=== PATIENT | male | born 1945 | race Caucasian/White ===

== ENCOUNTER 2018-07-11 10:57 | Outpatient (CLI) | payer OTHER, SELFPAY ==
[2018-07-11 13:09] LABS: Abs Immature Grans 0.03 k/cumm (0.0-0.09); Absolute Basophil Count 0.04 k/cumm (0.0-0.2); Absolute Eosinophil Count 0.42 k/cumm (0.0-0.7); Absolute Lymphocyte Count 1.94 k/cumm (1.2-3.4); Absolute Monocyte Count 0.91 k/cumm (0.11-0.7); Absolute Neutrophil Count 5.96 k/cumm (1.2-6.7); Basophils % 0.4; Eosinophils % 4.5; HCT 48.7 % (40.0-50.0); HGB 16.3 g/dL (13.5-17.5); Immature Grans % 0.3; Lymphocytes % 20.9; Mean Corp. HGB Concentration 33.5 g/dL (32.0-36.0); Mean Corpuscular Hemoglobin 30.5 pg (27.0-33.0); Mean Corpuscular Volume 91.2 fL (80-95); Mean Platelet Volume 10.5 fL (8.0-11.0); Monocytes % 9.8; Neutrophils % 64.1; Platelet Count 252 x1000/uL (130-400); RBC 5.34 m/cumm (4.50-6.00); RBC Distribution Width 14.3 % (11.8-14.1)
[2018-07-11 13:34] LABS: ALT 22 U/L (12-78); AST 24 U/L (15-37); Albumin 3.5 g/dL (3.4-5.0); Alkaline Phosphatase 57 U/L (46-116); Anion Gap 10.7 mmol/L (3-11); BUN 17 mg/dL (7-18); Bilirubin, Total 0.9 mg/dL (0.2-1.0); CO2 27.3 mmol/L (21.0-32.0); CREATININE 1.33 mg/dL (0.70-1.30); Calcium 9.2 mg/dL (8.5-10.1); Chloride 103 mmol/L (98-107); Estimated GFR 52.85 (mL/min/1.73m2); Glucose 96 mg/dL (70-100); Potassium 3.6 mmol/L (3.5-5.1); Sodium 141 mmol/L (136-145); TSH (W/Ref FT4) 1.92 uIU/mL (0.358-3.74); Total Protein 7.1 g/dL (6.4-8.2)
[2018-07-12 10:20] LABS: PSA, Screening 6.4 ng/ml (0-6.5)
[2018-07-12 15:41] LABS: Free PSA/PSA Ratio 0.08 ratio
== END 2018-07-11 11:17 ==
PROVIDERS: PCP Internal Medicine; Visit Provider Internal Medicine
DX: R97.20 Elevated prostate specific antigen [PSA] (principal); D64.9 Anemia, unspecified; I10 Essential (primary) hypertension
CPT/HCPCS: 36415; 80053; 84153; 84154; 84443; 85025

== ENCOUNTER 2019-01-09 11:17 | Outpatient (REF) | payer OTHER, SELFPAY ==
[2019-01-09 21:04] LABS: HCT 51.9 % (40.0-50.0); HGB 17.5 g/dL (13.5-17.5); Mean Corp. HGB Concentration 33.7 g/dL (32.0-36.0); Mean Corpuscular Hemoglobin 30.1 pg (27.0-33.0); Mean Corpuscular Volume 89.3 fL (80-95); Mean Platelet Volume 10.7 fL (8.0-11.0); Platelet Count 222 x1000/uL (130-400); RBC 5.81 m/cumm (4.50-6.00); RBC Distribution Width 14.8 % (11.8-14.1); White Blood Cell Count 8.54 k/cumm (4.4-10.8)
[2019-01-09 21:50] LABS: ALT 28 U/L (12-78); AST 25 U/L (15-37); Albumin 3.5 g/dL (3.4-5.0); Alkaline Phosphatase 59 U/L (46-116); BUN 19 mg/dL (7-18); Bilirubin, Total 0.7 mg/dL (0.2-1.0); Calcium 9.6 mg/dL (8.5-10.1); Chloride 102 mmol/L (98-107); Cholesterol 167 mg/dL (50-200); Estimated GFR 49.82 (mL/min/1.73m2); Glucose 101 mg/dL (70-100); HDL Cholesterol 32 mg/dL (40-60); LDL CHOLESTEROL 118 mg/dL (<100); Potassium 3.8 mmol/L (3.5-5.1); Sodium 141 mmol/L (136-145); TSH (W/Ref FT4) 1.48 uIU/mL (0.358-3.74); Total Protein 7.5 g/dL (6.4-8.2); Triglyceride 84 mg/dL (30-150)
[2019-01-09 22:48] LABS: Hemoglobin A1C 5.6 % (4.5-6.2)
== END 2019-01-09 11:37 ==
LOC: NCHCN 11:17
PROVIDERS: Visit Provider Family Medicine
DX: Z00.00 Encounter for general adult medical examination without abnormal findings (principal); Z13.220 Encounter for screening for lipoid disorders; E66.1 Drug-induced obesity
CPT/HCPCS: 80053; 80061; 83721; 85027; 83036; 84443

== ENCOUNTER 2020-08-19 22:00 | Outpatient (REF) | payer OTHER, SELFPAY ==
[2020-08-19 22:57] LABS: ALT 19 U/L (16-63); AST 20 U/L (15-37); Albumin 3.4 g/dL (3.4-5.0); Alkaline Phosphatase 62 U/L (46-116); Anion Gap 9.1 mmol/L (3-11); BUN 14 mg/dL (7-18); Bilirubin, Total 0.7 mg/dL (0.2-1.0); CO2 28.9 mmol/L (21.0-32.0); Calcium 8.9 mg/dL (8.5-10.1); Calculated LDL 107 mg/dL (<100); Chloride 103 mmol/L (98-107); Cholesterol 162 mg/dL (<200); Estimated GFR 42.46 (mL/min/1.73m2); Glucose 106 mg/dL (74-106); HDL Cholesterol 35 mg/dL (40-60); Potassium 3.6 mmol/L (3.5-5.1); Sodium 141 mmol/L (136-145); Total Protein 7.1 g/dL (6.4-8.2); Triglyceride 100 mg/dL (<150)
[2020-08-21 16:05] LABS: PSA, Screening 8.5 ng/mL (0-6.5)
== END 2020-08-19 22:20 ==
LOC: NCHCN 22:00
PROVIDERS: PCP Family Medicine; Visit Provider Family Medicine
DX: E66.01 Morbid (severe) obesity due to excess calories (principal); I10 Essential (primary) hypertension
CPT/HCPCS: 80053; 80061; 84153

== ENCOUNTER 2021-02-10 08:35 | Outpatient (REF) | payer BC, SELFPAY ==
[2021-02-10 13:40] LABS: ALT 30 U/L (16-63); AST 25 U/L (15-37); Albumin 3.3 g/dL (3.4-5.0); Alkaline Phosphatase 65 U/L (46-116); Anion Gap 8.7 mmol/L (3-11); BUN 21 mg/dL (7-18); Bilirubin, Total 0.7 mg/dL (0.2-1.0); CO2 32.3 mmol/L (21.0-32.0); CREATININE 1.5 mg/dL (0.70-1.30); Calcium 8.8 mg/dL (8.5-10.1); Calculated LDL 96 mg/dL (<100); Chloride 104 mmol/L (98-107); Cholesterol 148 mg/dL (<200); Estimated GFR 45.62 (mL/min/1.73m2); Glucose 119 mg/dL (74-106); HDL Cholesterol 37 mg/dL (40-60); Potassium 3.6 mmol/L (3.5-5.1); Sodium 145 mmol/L (136-145); Total Protein 6.8 g/dL (6.4-8.2); Triglyceride 75 mg/dL (<150)
== END 2021-02-10 08:36 | disposition home or self-care (01) ==
LOC: NCHCN 08:35
PROVIDERS: PCP Family Medicine; Visit Provider Family Medicine
DX: I10 Essential (primary) hypertension (principal); E66.01 Morbid (severe) obesity due to excess calories; Z00.00 Encounter for general adult medical examination without abnormal findings
CPT/HCPCS: 80053; 80061

== ENCOUNTER 2021-02-19 09:22 | Outpatient (CLI) | payer MEDICARE, SELFPAY ==
--- NOTE | 2021-02-19 14:37 | DI.RAD_ITS ---
Exam(s) XR LUMBAR SPINE COMPLETE EXAM: XR LUMBAR SPINE COMPLETE CLINICAL HISTORY: CHRONIC LOW BACK PAIN M54.5. TECHNIQUE: 2D digital imaging was performed. COMPARISON: No exams were available for comparison FINDINGS: No evidence of compression fracture. There is 5 millimeters anterior listhesis of L5 upon S1 which a ppears to be related to pars defects as faintly seen on the lateral view. There is advanced disc spa ce narrowing at this level. Moderate-advanced disc space narrowing is seen all the other levels in t he lumbar spine with the exception of relative disc height sparing at T12-L1 and L1-2 levels. There are prominent left-sided osteophytes bridging osteophytes at L2-3 level. Smaller osteophytes right-s jon L3-4 level. Degenerative changes noted in the facet joints. There is probably an element of mul tilevel canal stenosis here. No osseous lesions. SI joints unremarkable. There is a right hip pros thesis. IMPRESSION: DATA REPOSITORY: RADIATION DOSE DELIVERED:
== END 2021-02-19 09:42 ==
PROVIDERS: PCP Family Medicine; Visit Provider Family Medicine
DX: M54.5 Low back pain (principal); M51.37 Other intervertebral disc degeneration, lumbosacral region; M47.817 Spondylosis without myelopathy or radiculopathy, lumbosacral region; Z96.641 Presence of right artificial hip joint
CPT/HCPCS: 72110

== ENCOUNTER 2021-03-14 01:59 | Outpatient (CLI) | payer MEDICARE, SELFPAY ==
--- NOTE | 2021-03-14 | DI.MRI_ITS ---
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 TECHNIQUE: Multiplanar multisequence MRI of the Lumbar spine was performed. COMPARISON: CR XR LUMBAR SPINE COMPLETE from 02/19/2021 CR XR LUMBAR SPINE COMPLETE from 02/19/2021 FINDINGS: Bones: The last intervertebral disc space is designated the L5/S1 level for the numbering purpose of this examination. The vertebral body heights are well maintained. There is L5 spondylolysis and gra de 1 spondylolisthesis of L5 on S1. Endplate degenerative signal changes are seen at multiple levels of the lumbar spine. Hemangioma or fatty rests are seen in the T12 vertebral body in the S1 segment. Cord: The conus tip ends at the L1 level. It is of normal size and signal intensity. T12-L1: No disc herniations or bulges are present. No central spinal canal or neural foraminal stenos is. L1-2: No disc herniations or bulges are present. No central spinal canal or neural foraminal stenosis . L2-3: There is a diffuse disc bulge. No significant central spinal canal stenosis is seen. No signi ficant neural foraminal stenosis is present. L3-4: There is a diffuse disc bulge. Facet arthropathy is present. There is very mild narrowing of the central spinal canal. Mild bilateral neural foraminal stenosis is present, left greater than rig ht. L4-5: There is disc desiccation and a diffuse disc bulge slightly eccentric to the left. There is fa cet arthropathy. No significant central spinal canal stenosis is seen. Moderately severe bilateral neural foraminal stenosis is present. L5-S1: There is a mild diffuse disc bulge. No significant central spinal canal stenosis. Facet arth ropathy is present. Moderately severe bilateral neural foraminal stenosis is present. Soft tissues: The visualized SI joints and sacrum are well maintained. The paraspinal soft tissues ar e unremarkable. There are left renal simple cysts. IMPRESSION: 1. 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 2. 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 Findings are most marked at the L4-5 and L5-S1 disc levels. DATA REPOSITORY:
== END 2021-03-14 02:19 ==
PROVIDERS: PCP Family Medicine; Visit Provider Family Medicine
DX: M43.17 Spondylolisthesis, lumbosacral region (principal); M43.06 Spondylolysis, lumbar region; M47.816 Spondylosis without myelopathy or radiculopathy, lumbar region; M48.061 Spinal stenosis, lumbar region without neurogenic claudication
CPT/HCPCS: 72148

== ENCOUNTER 2022-02-16 11:08 | Outpatient (REF) | payer MEDICARE, SELFPAY ==
[2022-02-16 14:46] LABS: HCT 47.1 % (40.0-50.0); HGB 15.3 g/dL (13.5-17.5); MCH 30.8 pg (27.0-33.0); MCHC 32.5 % (32.0-36.0); MCV 95 fL (80-95); MPV 9.9 fL (8.0-11.0); Platelet Count 224 10^3/uL (130-400); RBC 4.96 10^6/uL (4.36-5.78); RDW 14.8 % (11.8-14.1); RDW-SD 51.6 fL; WBC 9.52 10^3/uL (4.4-10.8)
[2022-02-16 16:15] LABS: Hemoglobin A1C 5.3 % (<5.7)
[2022-02-16 16:28] LABS: ALT 19 U/L (16-63); AST 20 U/L (15-37); Albumin 3.2 g/dL (3.4-5.0); Alkaline Phosphatase 62 U/L (46-116); Anion Gap 7.6 mmol/L (3-11); BUN 18 mg/dL (7-18); Bilirubin, Total 0.7 mg/dL (0.2-1.0); CO2 30.4 mmol/L (21.0-32.0); CREATININE 1.4 mg/dL (0.70-1.30); Chloride 106 mmol/L (98-107); Estimated GFR 49.27 (mL/min/1.73m2); Glucose 93 mg/dL (74-106); Potassium 3.6 mmol/L (3.5-5.1); Sodium 144 mmol/L (136-145); Total Protein 6.9 g/dL (6.4-8.2)
== END 2022-02-16 11:09 | disposition home or self-care (01) ==
LOC: NCHCN 11:08
PROVIDERS: PCP Family Medicine; Visit Provider Family Medicine
DX: I10 Essential (primary) hypertension (principal); E66.01 Morbid (severe) obesity due to excess calories; R79.89 Other specified abnormal findings of blood chemistry
CPT/HCPCS: 80053; 85027; 83036

== ENCOUNTER → 2022-06-15 12:48 | Outpatient (CLI) | payer MEDICARE, SELFPAY ==
--- NOTE | 2022-06-15 | DI.RAD_ITS ---
Exam(s) XR HIP LT COMPLETE AP PELVIS EXAM: XR HIP LT COMPLETE AP PELVIS INDICATION: LEFT HIP JOINT PAIN--M25.552. COMPARISON: CR RIGHT HIP COMPLETE from 03/06/2011 CR PELVIS AP from 12/14/2011 RF from 11/14/2012 TECHNIQUE: 2D digital imaging was performed. Three views. FINDINGS: There is a right hip prosthesis. Left hip joint space is well maintained. There is acetabular spur ring. There are enthesophytes at the greater trochanter. There are dense degenerative changes in th e lower lumbar spine. IMPRESSION: Mild degenerative changes of the left hip. Right hip prosthesis. DATA REPOSITORY: RADIATION DOSE DELIVERED:
== END ==
PROVIDERS: PCP Family Medicine; Visit Provider Family Medicine
DX: M16.12 Unilateral primary osteoarthritis, left hip (principal)
CPT/HCPCS: 73502

== ENCOUNTER 2022-08-19 15:00 | Outpatient (REF) | payer MEDICARE, SELFPAY ==
[2022-08-19 18:12] LABS: Anion Gap 6.8 mmol/L (3-11); BUN 17 mg/dL (7-18); CO2 26.2 mmol/L (21.0-32.0); CREATININE 1.3 mg/dL (0.70-1.30); Calcium 9.3 mg/dL (8.5-10.1); Chloride 106 mmol/L (98-107); Estimated GFR 56.93 (mL/min/1.73m2); Glucose 108 mg/dL (74-106); Potassium 4.1 mmol/L (3.5-5.1); Sodium 139 mmol/L (136-145)
== END 2022-08-19 15:01 | disposition home or self-care (01) ==
LOC: NCHCN 15:00
PROVIDERS: PCP Family Medicine; Visit Provider Family Medicine
DX: I10 Essential (primary) hypertension (principal); E66.01 Morbid (severe) obesity due to excess calories
CPT/HCPCS: 80048

== ENCOUNTER 2023-02-15 15:34 | Outpatient (REF) | payer MEDICARE, SELFPAY ==
[2023-02-15 16:45] LABS: Anion Gap 7.3 mmol/L (3-11); BUN 19 mg/dL (7-18); CO2 30.7 mmol/L (21.0-32.0); CREATININE 1.4 mg/dL (0.70-1.30); Chloride 104 mmol/L (98-107); Estimated GFR 51.77 (mL/min/1.73m2); Glucose 103 mg/dL (74-106); Potassium 4.7 mmol/L (3.5-5.1); Sodium 142 mmol/L (136-145); TSH (W/Ref FT4) 4.54 uIU/mL (0.36-3.74)
[2023-02-15 18:27] LABS: FREE T4 1.38 ng/dL (0.76-1.46)
[2023-02-16 11:32] LABS: Hemoglobin A1C 5.6 % (<5.7)
== END 2023-02-15 15:35 | disposition home or self-care (01) ==
LOC: NCHCN 15:34
PROVIDERS: PCP Family Medicine; Visit Provider Family Medicine
DX: I10 Essential (primary) hypertension (principal); R73.09 Other abnormal glucose; N19 Unspecified kidney failure; L21.9 Seborrheic dermatitis, unspecified; E66.01 Morbid (severe) obesity due to excess calories
CPT/HCPCS: 80048; 83036; 84439; 84443

== ENCOUNTER 2023-09-08 16:37 | Outpatient (REF) | payer MEDICARE, SELFPAY ==
[2023-09-08 21:55] LABS: Anion Gap 9.7 mmol/L (3-11); BUN 15 mg/dL (7-18); CO2 26.3 mmol/L (21.0-32.0); CREATININE 1.4 mg/dL (0.70-1.30); Calcium 8.9 mg/dL (8.5-10.1); Chloride 105 mmol/L (98-107); Estimated GFR 51.77 (mL/min/1.73m2); Glucose 89 mg/dL (74-106); Potassium 3.8 mmol/L (3.5-5.1); Sodium 141 mmol/L (136-145)
== END 2023-09-08 16:38 | disposition home or self-care (01) ==
LOC: NCHCN 16:37
PROVIDERS: PCP Family Medicine; Visit Provider Family Medicine
DX: I10 Essential (primary) hypertension (principal)
CPT/HCPCS: 80048

== ENCOUNTER → 2024-01-24 17:25 | Outpatient (CLI) | payer MEDICARE, SELFPAY ==
--- NOTE | 2024-01-24 18:13 | DI.RAD_ITS ---
Exam(s) XR FOOT RT COMPLETE EXAM: XR FOOT RT COMPLETE CLINICAL HISTORY: M79.671Pain in RT foot, for 3 wks with Erythema and swelling. TECHNIQUE: 2D digital imaging was performed. Three views. COMPARISON: No exams were available for comparison FINDINGS: BONES: No acute fracture is present. No bony destructive lesion is seen. Heel spur. JOINTS: No dislocation present. Midfoot degenerative changes. SOFT TISSUE: Vascular calcifications. Dorsal swelling. IMPRESSION: Degenerative changes. No acute bony abnormality. DATA REPOSITORY: RADIATION DOSE DELIVERED:
--- NOTE | 2024-01-25 00:11 | DI.VRAD_ITS ---
PROCEDURE INFORMATION: Exam: XR Right Foot Exam date and time: 01/24/2024 5:56 PM Age: 79 years old Clinical indication: Swelling, leg or foot; Right; Patient HX: Pain in RT foot, for 3 wks with erythema and swelling; Additional info: Patient unable to hold position, best images possible TECHNIQUE: Imaging protocol: Radiologic exam of the right foot. Views: 3 or more views. COMPARISON: No relevant prior studies available. FINDINGS: Bones/joints: No acute fracture or dislocation. Calcaneal spur noted. Degenerative changes in the midfoot Soft tissues: Vascular calcifications IMPRESSION: No acute findings. Dictated and Authenticated by: Steven Arenas MD. Ordering:TRACIE Wiley MD
== END ==
PROVIDERS: PCP Family Medicine; Visit Provider Physician Assistant
DX: M79.671 Pain in right foot (principal)
CPT/HCPCS: 73630

== ENCOUNTER 2024-01-24 18:17 | Outpatient (REF) | payer MEDICARE, SELFPAY ==
[2024-01-24 21:02] LABS: Abs Immature Grans 0.04 10^3/uL (0.0-0.06); Absolute Basophil Count 0.07 10^3/uL (0.0-0.2); Absolute Eosinophil Count 0.34 10^3/uL (0.0-0.7); Absolute Lymphocyte Count 1.68 10^3/uL (1.2-3.4); Basophils % 0.6; Eosinophils % 3.1; HCT 50.8 % (40.0-50.0); HGB 16.6 g/dL (13.5-17.5); Immature Grans % 0.4; Lymphocytes % 15.1; MCH 30.1 pg (27.0-33.0); MCHC 32.7 % (32.0-36.0); MCV 92 fL (80-95); MPV 9.8 fL (8.0-11.0); Monocytes % 9.5; Neutrophils % 71.3; Platelet Count 296 10^3/uL (130-400); RBC 5.51 10^6/uL (4.36-5.78); RDW 13.3 % (11.8-14.1); RDW-SD 45.7 fL; WBC 11.11 10^3/uL (4.4-10.8)
[2024-01-24 21:03] LABS: ESR 30 mm/hr (0-20)
[2024-01-24 21:04] LABS: Absolute Monocyte Count 1.06 10^3/uL (0.1-0.8); Absolute Neutrophil Count 7.92 10^3/uL (1.2-6.7)
[2024-01-24 21:08] LABS: C-Reactive Protein 4.29 mg/dL (<or=0.5)
== END 2024-01-24 18:18 | disposition home or self-care (01) ==
LOC: LBN 18:17
PROVIDERS: PCP Family Medicine; Visit Provider Physician Assistant
DX: M79.671 Pain in right foot (principal)
CPT/HCPCS: 85652; 84550; 85025; 86140

== ENCOUNTER 2024-06-05 18:11 | Outpatient (REF) | payer MEDICARE, SELFPAY ==
[2024-06-05 21:38] LABS: Abs Immature Grans 0.04 10^3/uL (0.0-0.06); Absolute Basophil Count 0.04 10^3/uL (0.0-0.2); Absolute Eosinophil Count 0.32 10^3/uL (0.0-0.7); Absolute Lymphocyte Count 1.59 10^3/uL (1.2-3.4); Absolute Monocyte Count 0.68 10^3/uL (0.1-0.8); Absolute Neutrophil Count 5.81 10^3/uL (1.2-6.7); Basophils % 0.5 %; Eosinophils % 3.8 %; HCT 46.6 % (40.0-50.0); HGB 15.1 g/dL (13.5-17.5); Immature Grans % 0.5 %; Lymphocytes % 18.8 %; MCH 30.8 pg (27.0-33.0); MCHC 32.4 % (32.0-36.0); MCV 95 fL (80-95); MPV 9.7 fL (8.0-11.0); Neutrophils % 68.4 %; Platelet Count 278 10^3/uL (130-400); RDW 13.7 % (11.8-14.1); RDW-SD 48.6 fL; WBC 8.48 10^3/uL (4.4-10.8)
[2024-06-05 22:15] LABS: ALT 19 U/L (16-63); AST 16 U/L (15-37); Alkaline Phosphatase 64 U/L (46-116); Anion Gap 5.9 mmol/L (3-11); BUN 9 mg/dL (7-18); Bilirubin, Total 0.75 mg/dL (0.2-1.0); CO2 31.1 mmol/L (21.0-32.0); CREATININE 1.5 mg/dL (0.70-1.30); Calcium 8.9 mg/dL (8.5-10.1); Chloride 103 mmol/L (98-107); Estimated GFR 47.36 (mL/min/1.73m2); Glucose 92 mg/dL (74-106); Potassium 4.4 mmol/L (3.5-5.1); Sodium 140 mmol/L (136-145); TSH (W/Ref FT4) 1.76 uIU/mL (0.36-3.74); Total Protein 7.1 g/dL (6.4-8.2); Vitamin B12 234 pg/mL (193-986)
[2024-06-05 22:58] LABS: Folate 2.2 ng/mL (8.6-20.0)
== END 2024-06-05 18:12 | disposition home or self-care (01) ==
LOC: NCHCN 18:11
PROVIDERS: PCP Family Medicine; Visit Provider Family Medicine
DX: R41.81 Age-related cognitive decline (principal); R79.89 Other specified abnormal findings of blood chemistry; I10 Essential (primary) hypertension; Z86.39 Personal history of other endocrine, nutritional and metabolic disease
CPT/HCPCS: 80053; 82607; 82746; 84443; 85025

== ENCOUNTER 2024-06-19 02:38 | Outpatient (CLI) | payer MEDICARE, SELFPAY ==
--- NOTE | 2024-06-19 14:13 | DI.CT_ITS ---
Exam(s) CT HEAD WO EXAM: CT HEAD WO CLINICAL HISTORY: AGE RELATED COGNITIVE DECLINE,R41.81. TECHNIQUE: Imaging Protocol: Axial computed tomography images with coronal and sagittal reformatted images were created and reviewed COMPARISON: No exams were available for comparison FINDINGS: There are no skull fractures. There is no fluid in the visualized paranasal sinuses. There is no evidence of intracranial hemorrhage, mass effect, or shift of midline structures. There are no extra-axial fluid collections. The ventricles are not enlarged or shifted and there is no blo od within the ventricular system nor within the basal cisterns. There is abundant bilateral periventricular hypodensity consistent with chronic small vessel disease. No obvious acute territorial infarct. Symmetrical moderate atrophy noted. There is a circumferential vascular calcification within the intra cavernous internal carotid arterie s at the skull base as well as within both vertebral arteries at the skull base indicating atheroscle rotic involvement. IMPRESSION: No acute intracranial findings on this noninfused CT scan of the brain. There is abundant bilateral periventricular hypodensity consistent with chronic small vessel disease. Vascular calcification noted as described above. RADIATION DOSE DELIVERED: 844.03mGy.cm Total DLP DATA REPOSITORY: All CT scans at this facility are submitted to the National Radiology Data Registry (NRDR) Dose Index Registry (DIR) with the [employer] ([employer]). RADIATION OPTIMIZATION: All CT scans at this facility use at least one of these dose optimization te chniques: automated exposure control; mA and/or kV adjustment per patient size (includes targeted exa ms where dose is matched to clinical indication); or iterative reconstruction.
== END 2024-06-19 02:58 ==
LOC: DI 02:39
PROVIDERS: PCP Family Medicine; Visit Provider Family Medicine
DX: R41.81 Age-related cognitive decline (principal)
CPT/HCPCS: 70450

== ENCOUNTER 2024-07-03 14:57 | Outpatient (REF) | payer MEDICARE, SELFPAY ==
[2024-07-03 16:20] LABS: COMMENT (LAB VIEW ONLY) 94.04 mg/dL; Microalb ug/mg Crea 79.5 ug/mg Cr
== END 2024-07-03 14:58 | disposition home or self-care (01) ==
LOC: NCHCN 14:57
PROVIDERS: PCP Family Medicine; Visit Provider Family Medicine
DX: I10 Essential (primary) hypertension (principal)
CPT/HCPCS: 82043; 82570

== ENCOUNTER 2024-09-11 15:30 | Outpatient (REF) | payer MEDICARE, SELFPAY ==
[2024-09-11 22:19] LABS: Folate > 20.0 ng/mL (8.6-20.0)
== END 2024-09-11 15:31 | disposition home or self-care (01) ==
LOC: NCHCN 15:30
PROVIDERS: PCP Family Medicine; Visit Provider Family Medicine
DX: E53.8 Deficiency of other specified B group vitamins (principal)
CPT/HCPCS: 82746

== ENCOUNTER 2025-06-11 16:56 | Outpatient (REF) | payer MEDICARE, SELFPAY ==
[2025-06-11 16:21] LABS: Abs Immature Grans 0.03 10^3/uL (0.0-0.06); HCT 45.9 % (40.0-50.0); HGB 15.2 g/dL (13.5-17.5); Immature Grans % 0.4 %; MCH 30.5 pg (27.0-33.0); MCHC 33.1 % (32.0-36.0); MCV 92 fL (80-95); MPV 9.5 fL (8.0-11.0); Platelet Count 315 10^3/uL (130-400); RBC 4.98 10^6/uL (4.36-5.78); RDW 13.5 % (11.8-14.1); RDW-SD 46.5 fL; WBC 8.57 10^3/uL (4.4-10.8)
[2025-06-11 16:50] LABS: ALT 27 U/L (16-63); AST 22 U/L (15-37); Albumin 3.0 g/dL (3.4-5.0); Alkaline Phosphatase 62 U/L (46-116); Anion Gap 6.8 mmol/L (3-11); BUN 21 mg/dL (7-18); Bilirubin, Total 0.4 mg/dL (0.2-1.0); CO2 34.2 mmol/L (21.0-32.0); Calcium 9.2 mg/dL (8.5-10.1); Chloride 101 mmol/L (98-107); Estimated GFR 43.56 (mL/min/1.73m2); Folate > 20.0 ng/mL (8.6-20.0); Glucose 96 mg/dL (74-106); Potassium 3.6 mmol/L (3.5-5.1); Sodium 142 mmol/L (136-145); Total Protein 7.3 g/dL (6.4-8.2)
== END 2025-06-11 16:57 | disposition home or self-care (01) ==
LOC: NCHCN 16:56
PROVIDERS: PCP Family Medicine; Visit Provider Family Medicine
DX: I10 Essential (primary) hypertension (principal)
CPT/HCPCS: 80053; 82746; 85025